=== PATIENT | female | born 1975 ===

== ENCOUNTER 2017-03-14 20:00 | Inpatient (IN) | payer OTHER ==
--- NOTE | 2017-03-14 20:48 | PDGENHP ---
History and Physical - Chief Complaint leaking of fluid - History of Present Illness Patient is a 41 year old at 32 6/7 weeks gestation LESLIE 05/03/17 who presents for leaking of fluid since 1900. Clear fluid. Patient and just moved from [place], [place] and had first visit with [facility] this past week. Her history includes gestational diabetes and polyhydramnios. +FM no vaginal bleeding +contractions History Information - Allergies/Home Medication List Allergies/Adverse Reactions: No Known Allergies Allergy (Unverified 03/14/17 20:32) I have personally reviewed and updated: medical history Review of Systems Review of Systems: Physical Exam Physical Exam: Constitutional: no apparent distress Cardiovascular: regular rate and rhythym, no murmur, rub, or gallop Respiratory: no respiratory distress, no rales or rhonchi, clear to auscultation Gastrointestinal: soft, non-tender abdomen, other (Gravid) Genitourinary: other (SVE ft/50/high cephalic ) Skin: warm, normal color Neurologic: AAOx3, sensation intact bilaterally Psychiatric: interacting appropriately, not anxious Lab Data & Imaging Review FHT : 140 + accels mod variability Cat I [place]:irregular Assessment & Plan Assessment: IUP at 32 6/7 weeks SROM Amnisure + Cephalic by ultrasound labor contractions on Progesterone Polyhydramnios AMA Gestational Diabetic Diet controlled Transfer from [place], [place] Plan: Admit to labor and Delivery IVF Betamethasone Labs Antibiotics Ultrasound confirms cephalic
[2017-03-14] MEDS ORDERED: AZITHROMYCIN 250 MG TAB PO ONE (20:53)
[2017-03-14] MEDS ORDERED: TERBUTALINE SULFATE 1 MG/ML VIAL IV ONE (20:54)
[2017-03-14] MEDS ORDERED: BETAMETHASONE IM SYRINGE IM ONE (21:00)
[2017-03-14] MEDS ORDERED: AMPICILLIN SODIUM 2 GM in STERILE WATER INJ 25 ML IV SCH (21:15)
[2017-03-14] MEDS ORDERED: OXYTOCIN 20 UNIT in LR 1,000 ML IV PRN (21:26)
[2017-03-14] MEDS ORDERED: EPSOM SALT 454 GM TP PRN (21:26)
[2017-03-14] MEDS ORDERED: LR 1,000 ML IV PRN (21:26)
[2017-03-14] MEDS ORDERED: OLIVE OIL 118 ML BTL MISC PRN (21:26)
[2017-03-14] MEDS ORDERED: MISOPROSTOL 200 MCG TAB PR PRN (21:26)
[2017-03-14] MEDS ORDERED: IBUPROFEN 600 MG TAB PO PRN (21:26)
[2017-03-14] MEDS ORDERED: TERBUTALINE SULFATE 1 MG/ML VIAL IV PRN (21:26)
[2017-03-14] MEDS: LR 1,000 ML IV SCH (21:40)
[2017-03-14 22:06] LABS: PLATELET COUNT 278 10^3/uL (150-400)
[2017-03-14] MEDS ORDERED: Mag Sulf 500 ML IV SCH (22:30)
[2017-03-14] MEDS ORDERED: MAGNESIUM SULF 4 GM/WATER 100 ML BAG IV ONE (22:30)
[2017-03-14] MEDS ORDERED: MAGNESIUM SULFATE 20 GM in D5W 500 ML IV SCH (22:45)
[2017-03-14] MEDS: AMPICILLIN SODIUM 2 GM in STERILE WATER INJ 25 ML IV SCH (22:52)
[2017-03-14 23:04] LABS: HIV TYPE 1 AND 2 NEGATIVE (NEGATIVE)
[2017-03-15] MEDS ORDERED: AMPICILLIN SODIUM 2 GM in NS 100 ML IV SCH
[2017-03-15] MEDS: AMPICILLIN SODIUM 2 GM in STERILE WATER INJ 25 ML IV SCH ×4 (05:07→23:01)
[2017-03-15] MEDS ORDERED: TERBUTALINE SULFATE 1 MG/ML VIAL SC ONE (07:18)
--- NOTE | 2017-03-15 07:49 | OBPROG ---
Labor Progress Note Assessment/Plan: Assessment: IUP at 34 weeks SROM Diabetic AMA Plan: Magnesium sulfate for betamethasone window Betamethasone Antibiotics Cephalic by ultrasound 03/15/17 07:48 Subjective/Intrapartum Course: 03/15/17 07:53 Doing well no contractions. Tolerating Magnesium well. No nausea no emesis +FM Objective: 03/14/17 21:40 Patient ABO/Rh A NEGATIVE 03/14/17 21:40 - SVE Membranes: SROM Amniotic Fluid Color: Clear - FHR Assessment [place] FHR (bpm): 145 FHR Pattern Variability: Moderate FHR Category: 1 - Physical Exam Neck: non-tender, full range of motion Respiratory: chest non-tender, lungs clear Cardiac/Chest: normal peripheral pulses, regular rate, rhythm Abdomen: normal bowel sounds, hypoactive bowel sounds, non-tender Extremities: normal range of motion, non-tender Skin: normal color, warm/dry Neuro/Psych: no motor/sensory deficits, alert, normal mood/affect, oriented x 3 Oxytocin Orders Assessment - Pre-Induction/Augmentation Assessment Gestational Age: 32 week(s) and 6 day(s) ICD10 Worksheet Patient Problems: Problems Problem Status Onset AMA (advanced maternal age) multigravida 35+ Acute Diabetes in Acute labor in third trimester Acute premature rupture of membranes (PPROM) with onset of labor after 24 hours of rupture in first trimester, antepartum Acute - ICD10 Problem Qualifiers (1) labor in third trimester (2) Diabetes in (3) AMA (advanced maternal age) multigravida 35+ (4) premature rupture of membranes (PPROM) with onset of labor after 24 hours of rupture in first trimester, antepartum
[2017-03-15] MEDS ORDERED: D50W 25 GM/50 ML SYR IVP PRN (07:57)
[2017-03-15] MEDS: INSULIN REGULAR HUMAN 100 UNIT/ML UNIT SC SCH ×3 (14:57→22:16)
[2017-03-15] MEDS: NS IV SCH (19:54)
[2017-03-15] MEDS: MAGNESIUM SULFATE IV SCH (19:54)
[2017-03-15] MEDS ORDERED: BETAMETHASONE IM SYRINGE IM ONE (21:00)
[2017-03-15] MEDS: LR 1,000 ML IV SCH (23:02)
[2017-03-16] MEDS: AMPICILLIN SODIUM 2 GM in STERILE WATER INJ 25 ML IV SCH ×3 (04:51→16:51)
[2017-03-16] MEDS: MAGNESIUM SULFATE IV SCH (06:06)
[2017-03-16] MEDS: NS IV SCH (06:06)
--- NOTE | 2017-03-16 06:39 | OBPROG ---
Labor Progress Note Assessment/Plan: Assessment: IUP at 34 weeks SROM Diabetic AMA Plan: Magnesium sulfate for betamethasone window Betamethasone Antibiotics Cephalic by ultrasound 03/15/17 07:48 03/16/17 06:45 Discontinue Magnesium sulfate Okay for shower and ambulating NST TID Subjective/Intrapartum Course: 03/15/17 07:53 Doing well no contractions. Tolerating Magnesium well. No nausea no emesis +FM Objective: 03/14/17 21:40 Patient ABO/Rh A NEGATIVE 03/14/17 21:40 - SVE Membranes: SROM Amniotic Fluid Color: Clear - FHR Assessment [place] FHR (bpm): 140 FHR Pattern Variability: Absent FHR Category: 1 - Physical Exam Neck: full range of motion, supple Respiratory: chest non-tender, lungs clear, normal breath sounds Cardiac/Chest: normal peripheral pulses, regular rate, rhythm Abdomen: normal bowel sounds, non-tender Extremities: normal range of motion, non-tender Neuro/Psych: no motor/sensory deficits, alert, normal mood/affect, oriented x 3 Oxytocin Orders Assessment - Pre-Induction/Augmentation Assessment Gestational Age: 32 week(s) and 6 day(s) ICD10 Worksheet Patient Problems: Problems Problem Status Onset AMA (advanced maternal age) multigravida 35+ Acute Diabetes in Acute labor in third trimester Acute premature rupture of membranes (PPROM) with onset of labor after 24 hours of rupture in first trimester, antepartum Acute - ICD10 Problem Qualifiers (1) labor in third trimester (2) Diabetes in (3) AMA (advanced maternal age) multigravida 35+ (4) premature rupture of membranes (PPROM) with onset of labor after 24 hours of rupture in first trimester, antepartum
[2017-03-16] MEDS: INSULIN REGULAR HUMAN 100 UNIT/ML UNIT SC SCH ×4 (07:49→22:42)
[2017-03-16] MEDS: DOCUSATE SODIUM 100 MG CAP PO SCH (21:45)
--- NOTE | 2017-03-17 07:18 | OBPROG ---
Labor Progress Note Assessment/Plan: Assessment:cat 1 contractions q 10 minutes continued leaking of clear fluid nicu tour today by wheelchair denies difficulties continuous monitoring antibiotics po tid regular diet afebrile dr. paco lopez in to see patient today to discus POC Plan:expectant management 03/17/17 07:15 Subjective/Intrapartum Course: 03/15/17 07:53 Doing well no contractions. Tolerating Magnesium well. No nausea no emesis +FM 03/17/17 07:14 Doing well denies difficulties. Decreased movement with magnesium, desires to keep monitoring continuous until reassuring movement returns . Objective: 03/14/17 21:40 Patient ABO/Rh A NEGATIVE 03/14/17 21:40 Group B Strep DNA POSITIVE (NEGATIVE) H 03/15/17 02:36 - SVE Membranes: SROM Amniotic Fluid Color: Clear - Contraction Pattern Assessment Current Contraction Pattern: Regular - FHR Assessment [place] FHR (bpm): 145 FHR Pattern Variability: Moderate FHR Category: 1 - Physical Exam General Appearance: WD/WN, alert, no apparent distress Respiratory: chest non-tender, lungs clear, normal breath sounds Cardiac/Chest: regular rate, rhythm Extremities: normal range of motion, Jolene's sign (negative bilaterally) DTR- Lower Extremities: Knee (R): 1+, Knee (L): 1+ (no clonus) Skin: normal color, warm/dry Neuro/Psych: no motor/sensory deficits, alert, normal mood/affect, oriented x 3 Oxytocin Orders Assessment - Pre-Induction/Augmentation Assessment Gestational Age: 32 week(s) and 6 day(s) ICD10 Worksheet Patient Problems: Problems Problem Status Onset AMA (advanced maternal age) multigravida 35+ Acute Diabetes in Acute labor in third trimester Acute premature rupture of membranes (PPROM) with onset of labor after 24 hours of rupture in first trimester, antepartum Acute
[2017-03-17] MEDS: DOCUSATE SODIUM 100 MG CAP PO SCH ×2 (09:57→20:37)
[2017-03-17] MEDS: PRENATAL VIT 1 EACH TAB PO SCH (09:59)
--- NOTE | 2017-03-18 08:08 | OBPROG ---
Labor Progress Note Assessment/Plan: Assessment: IUP at 33 3/7 weeks SROM Diabetic AMA Plan: Betamethasone completed Antibiotics Cephalic by ultrasound IOL at 34 weeks gestation 03/15/17 07:48 03/16/17 06:45 Discontinue Magnesium sulfate Okay for shower and ambulating NST TID 03/18/17 08:04 Subjective/Intrapartum Course: 03/15/17 07:53 Doing well no contractions. Tolerating Magnesium well. No nausea no emesis +FM 03/17/17 07:14 Doing well denies difficulties. Decreased movement with magnesium, desires to keep monitoring continuous until reassuring movement returns . Objective: 03/14/17 21:40 Patient ABO/Rh A NEGATIVE 03/14/17 21:40 Group B Strep DNA POSITIVE (NEGATIVE) H 03/15/17 02:36 - SVE Membranes: SROM Amniotic Fluid Color: Clear - Contraction Pattern Assessment Current Contraction Pattern: Regular - FHR Assessment [place] FHR (bpm): 145 FHR Pattern Variability: Moderate FHR Category: 1 - AP Antepartum Course: 03/18/17 08:06 Doing well no complaints. Tolerating diet and ambulating. Patient states will be working on 03/24 in [place]. However will most likely delivery this weekend after 34 weeks gestation. Oxytocin Orders Assessment - Pre-Induction/Augmentation Assessment Gestational Age: 32 week(s) and 6 day(s) ICD10 Worksheet Patient Problems: Problems Problem Status Onset AMA (advanced maternal age) multigravida 35+ Acute Diabetes in Acute labor in third trimester Acute premature rupture of membranes (PPROM) with onset of labor after 24 hours of rupture in first trimester, antepartum Acute - ICD10 Problem Qualifiers (1) labor in third trimester (2) Diabetes in (3) AMA (advanced maternal age) multigravida 35+ (4) premature rupture of membranes (PPROM) with onset of labor after 24 hours of rupture in first trimester, antepartum
[2017-03-18] MEDS ORDERED: RANITIDINE HCL 150 MG/10 ML UDCUP PO SCH (09:00)
[2017-03-18] MEDS ORDERED: FAMOTIDINE 20 MG TAB PO SCH (09:00)
[2017-03-18] MEDS ORDERED: LIDOCAINE 1% 300 MG/30 ML SDV ONE (10:13)
[2017-03-18] MEDS ORDERED: TERBUTALINE SULFATE 1 MG/ML VIAL ONE (10:14)
[2017-03-18] MEDS ORDERED: OLIVE OIL 118 ML BTL ONE (10:14)
[2017-03-18] MEDS ORDERED: AMMONIA AROMATIC 1 EACH AMP IH ONE (10:14)
[2017-03-18] MEDS ORDERED: OXYTOCIN 10 UNIT/ML VIAL ONE (10:14)
[2017-03-18] MEDS ORDERED: MISOPROSTOL 200 MCG TAB ONE (10:15)
[2017-03-18] MEDS: DOCUSATE SODIUM 100 MG CAP PO SCH ×2 (14:18→21:36)
[2017-03-18] MEDS: FAMOTIDINE 20 MG TAB PO SCH ×2 (15:51→21:32)
--- NOTE | 2017-03-19 07:39 | OBPROG ---
Labor Progress Note Assessment/Plan: Assessment: IUP at 33 4/7 weeks SROM Diabetic AMA Stable Plan: Betamethasone completed Antibiotics Cephalic by ultrasound IOL at 34 weeks gestation 03/15/17 07:48 03/16/17 06:45 Discontinue Magnesium sulfate Okay for shower and ambulating NST TID 03/18/17 08:04 03/19/17 07:32 Continue current management IOL at 34 weeks Inductions on Wednesday 03/22 Subjective/Intrapartum Course: 03/15/17 07:53 Doing well no contractions. Tolerating Magnesium well. No nausea no emesis +FM 03/17/17 07:14 Doing well denies difficulties. Decreased movement with magnesium, desires to keep monitoring continuous until reassuring movement returns . 03/19/17 07:39 Doing well. Had some contractions over night. Continues to have leaking of clear fluid. +FM no bleeding occ contractions Objective: 03/14/17 21:40 Patient ABO/Rh A NEGATIVE 03/14/17 21:40 Group B Strep DNA POSITIVE (NEGATIVE) H 03/15/17 02:36 - SVE Membranes: SROM Amniotic Fluid Color: Clear - Contraction Pattern Assessment Current Contraction Pattern: Regular - AP Antepartum Course: 03/18/17 08:06 Doing well no complaints. Tolerating diet and ambulating. Patient states will be working on 03/24 in [place]. However will most likely delivery this weekend after 34 weeks gestation. - Physical Exam Neck: non-tender, full range of motion Respiratory: chest non-tender, lungs clear, normal breath sounds Cardiac/Chest: normal peripheral pulses, regular rate, rhythm Abdomen: normal bowel sounds, non-tender, soft Extremities: normal range of motion, non-tender Skin: normal color, warm/dry Neuro/Psych: no motor/sensory deficits, alert, normal mood/affect, oriented x 3 Oxytocin Orders Assessment - Pre-Induction/Augmentation Assessment Gestational Age: 32 week(s) and 6 day(s) ICD10 Worksheet Patient Problems: Problems Problem Status Onset AMA (advanced maternal age) multigravida 35+ Acute Diabetes in Acute labor in third trimester Acute premature rupture of membranes (PPROM) with onset of labor after 24 hours of rupture in first trimester, antepartum Acute - ICD10 Problem Qualifiers (1) labor in third trimester (2) Diabetes in (3) AMA (advanced maternal age) multigravida 35+ (4) premature rupture of membranes (PPROM) with onset of labor after 24 hours of rupture in first trimester, antepartum
[2017-03-19] MEDS: FAMOTIDINE 20 MG TAB PO SCH ×2 (10:36→20:45)
[2017-03-19] MEDS: DOCUSATE SODIUM 100 MG CAP PO SCH ×2 (10:36→20:45)
[2017-03-19] MEDS: PRENATAL VIT 1 EACH TAB PO SCH ×2 (10:37→12:58)
--- NOTE | 2017-03-20 08:18 | OBPROG ---
Labor Progress Note Assessment/Plan: Assessment: IUP at 33 5/7 weeks SROM Diabetic AMA Stable Plan: Betamethasone completed Antibiotics Cephalic by ultrasound IOL at 34 weeks gestation 03/15/17 07:48 03/16/17 06:45 Discontinue Magnesium sulfate Okay for shower and ambulating NST TID 03/18/17 08:04 03/19/17 07:32 Continue current management IOL at 34 weeks Inductions on Wednesday 03/2203/20/17 08:13 Continue current management Plan IOL at 34 weeks 03/22/17 Subjective/Intrapartum Course: 03/15/17 07:53 Doing well no contractions. Tolerating Magnesium well. No nausea no emesis +FM 03/17/17 07:14 Doing well denies difficulties. Decreased movement with magnesium, desires to keep monitoring continuous until reassuring movement returns . 03/19/17 07:39 Doing well. Had some contractions over night. Continues to have leaking of clear fluid. +FM no bleeding occ contractions 03/20/17 08:18 Patient doing well. Tolerating diet. +FM one contraction over night. NO uterine tenderness. ambulating well in room. Objective: 03/14/17 21:40 Patient ABO/Rh A NEGATIVE 03/14/17 21:40 Group B Strep DNA POSITIVE (NEGATIVE) H 03/15/17 02:36 - SVE Membranes: SROM Amniotic Fluid Color: Clear - Contraction Pattern Assessment Current Contraction Pattern: Regular - FHR Assessment [place] FHR (bpm): 140 FHR Pattern Variability: Moderate FHR Category: 1 - AP Antepartum Course: 03/18/17 08:06 Doing well no complaints. Tolerating diet and ambulating. Patient states will be working on 03/24 in [place]. However will most likely delivery this weekend after 34 weeks gestation. Oxytocin Orders Assessment - Pre-Induction/Augmentation Assessment Gestational Age: 32 week(s) and 6 day(s) ICD10 Worksheet Patient Problems: Problems Problem Status Onset AMA (advanced maternal age) multigravida 35+ Acute Diabetes in Acute labor in third trimester Acute premature rupture of membranes (PPROM) with onset of labor after 24 hours of rupture in first trimester, antepartum Acute - ICD10 Problem Qualifiers (1) labor in third trimester (2) Diabetes in (3) AMA (advanced maternal age) multigravida 35+ (4) premature rupture of membranes (PPROM) with onset of labor after 24 hours of rupture in first trimester, antepartum
[2017-03-20] MEDS: [UNRECOGNIZED DRUG - OTHER] PO SCH (09:05)
[2017-03-20] MEDS: FAMOTIDINE 20 MG TAB PO SCH ×2 (09:05→22:07)
[2017-03-20] MEDS: VITAMIN D3 PO SCH (09:06)
[2017-03-20] MEDS: DOCUSATE SODIUM 100 MG CAP PO SCH ×2 (09:06→22:08)
[2017-03-21] MEDS: [UNRECOGNIZED DRUG - OTHER] PO SCH (09:00)
[2017-03-21] MEDS: VITAMIN D3 PO SCH (09:00)
[2017-03-21] MEDS: DOCUSATE SODIUM 100 MG CAP PO SCH ×2 (10:47→20:26)
[2017-03-21] MEDS: FAMOTIDINE 20 MG TAB PO SCH ×2 (10:48→20:26)
--- NOTE | 2017-03-21 10:50 | OBPROG ---
Labor Progress Note Assessment/Plan: Assessment: 41 y/o @ 33 6/7 weeks with PPROM s/p BMZ, MgSo4 and latency antibiotics. Plan: IOL tomorrow @ 34 weeks. We will check her cervix in the am and assess the best method for IOL, cytotec vs pitocin. Pt is open to pain management prn. 03/21/17 10:48 Subjective/Intrapartum Course: 03/15/17 07:53 Doing well no contractions. Tolerating Magnesium well. No nausea no emesis +FM 03/17/17 07:14 Doing well denies difficulties. Decreased movement with magnesium, desires to keep monitoring continuous until reassuring movement returns . 03/19/17 07:39 Doing well. Had some contractions over night. Continues to have leaking of clear fluid. +FM no bleeding occ contractions 03/20/17 08:18 Patient doing well. Tolerating diet. +FM one contraction over night. NO uterine tenderness. ambulating well in room. 03/21/17 10:46 Pt is doing well this am. She feels good FM, no pain or contractions, still leaking clear fluid, nml BM. She is ready for IOL tomorrow. Objective: 03/14/17 21:40 Patient ABO/Rh A NEGATIVE 03/14/17 21:40 Group B Strep DNA POSITIVE (NEGATIVE) H 03/15/17 02:36 - SVE Membranes: SROM Amniotic Fluid Color: Clear - Contraction Pattern Assessment Current Contraction Pattern: Regular, Irregular (none) - FHR Assessment [place] FHR (bpm): 140 FHR Pattern Variability: Moderate FHR Category: 1 - AP Antepartum Course: 03/18/17 08:06 Doing well no complaints. Tolerating diet and ambulating. Patient states will be working on 03/24 in [place]. However will most likely delivery this weekend after 34 weeks gestation. - Physical Exam General Appearance: WD/WN, alert, no apparent distress Neck: non-tender, full range of motion, supple Respiratory: chest non-tender, lungs clear, normal breath sounds Cardiac/Chest: regular rate, rhythm Abdomen: normal bowel sounds, other (gravid, NT) Extremities: swelling (no), Jolene's sign (neg) Oxytocin Orders Assessment - Pre-Induction/Augmentation Assessment Gestational Age: 32 week(s) and 6 day(s) ICD10 Worksheet Patient Problems: Problems Problem Status Onset AMA (advanced maternal age) multigravida 35+ Acute Diabetes in Acute labor in third trimester Acute premature rupture of membranes (PPROM) with onset of labor after 24 hours of rupture in first trimester, antepartum Acute
--- NOTE | 2017-03-22 07:07 | OBPROG ---
Labor Progress Note Assessment/Plan: Assessment:cat 2 irregular contractions continued leaking of clear fluid + gbs denies difficulties continuous monitoring regular diet afebrile Consulted dr. miguel mccord on poc exam ft-1/100/0 cephalic Plan:gbs + anibiotics to begin, cytotec for ripening, discussed poc with patient in agreement with poc 03/17/17 07:15 03/22/17 07:05 Subjective/Intrapartum Course: 03/15/17 07:53 Doing well no contractions. Tolerating Magnesium well. No nausea no emesis +FM 03/17/17 07:14 Doing well denies difficulties. Decreased movement with magnesium, desires to keep monitoring continuous until reassuring movement returns . 03/19/17 07:39 Doing well. Had some contractions over night. Continues to have leaking of clear fluid. +FM no bleeding occ contractions 03/20/17 08:18 Patient doing well. Tolerating diet. +FM one contraction over night. NO uterine tenderness. ambulating well in room. 03/21/17 10:46 Pt is doing well this am. She feels good FM, no pain or contractions, still leaking clear fluid, nml BM. She is ready for IOL tomorrow. 03/22/17 07:04 Doing well this am. Continued leaking of clear fluid. afebrile. Feeling positive movement. PAtient states I have been doing well, Objective: 03/14/17 21:40 Patient ABO/Rh A NEGATIVE 03/14/17 21:40 Group B Strep DNA POSITIVE (NEGATIVE) H 03/15/17 02:36 - SVE Dilation (cm): 1 Effacement (%): 100 Station: 0 Membranes: SROM Amniotic Fluid Color: Clear - Contraction Pattern Assessment Current Contraction Pattern: Irregular (none) - FHR Assessment [place] FHR (bpm): 165 FHR Pattern Variability: Moderate FHR Category: 2 - AP Antepartum Course: 03/18/17 08:06 Doing well no complaints. Tolerating diet and ambulating. Patient states will be working on 03/24 in [place]. However will most likely delivery this weekend after 34 weeks gestation. - Physical Exam General Appearance: WD/WN, alert, no apparent distress Respiratory: chest non-tender, lungs clear, normal breath sounds Cardiac/Chest: regular rate, rhythm Abdomen: normal bowel sounds Extremities: normal range of motion, Jolene's sign (negative bilaterally) DTR- Lower Extremities: Knee (R): 1+, Knee (L): 1+ (no clonus) Skin: normal color, warm/dry Neuro/Psych: no motor/sensory deficits, alert, normal mood/affect, oriented x 3 Oxytocin Orders Assessment - Pre-Induction/Augmentation Assessment Gestational Age: 32 week(s) and 6 day(s) ICD10 Worksheet Patient Problems: Problems Problem Status Onset AMA (advanced maternal age) multigravida 35+ Acute Diabetes in Acute labor in third trimester Acute premature rupture of membranes (PPROM) with onset of labor after 24 hours of rupture in first trimester, antepartum Acute
[2017-03-22] MEDS ORDERED: LR 1,000 ML IV PRN (07:08)
[2017-03-22] MEDS ORDERED: MISOPROSTOL 200 MCG TAB PO ONE (07:08)
[2017-03-22] MEDS ORDERED: MISOPROSTOL 200 MCG TAB PR PRN (07:08)
[2017-03-22] MEDS ORDERED: MISOPROSTOL 100 MCG TAB PO ONE ×2 (07:10→13:00)
[2017-03-22] MEDS: AMPICILLIN SODIUM 1 GM in STERILE WATER INJ 15 ML IV SCH ×5 (08:01→22:09)
[2017-03-22] MEDS: VITAMIN D3 PO SCH (08:35)
[2017-03-22] MEDS: [UNRECOGNIZED DRUG - OTHER] PO SCH (08:35)
[2017-03-22] MEDS: DOCUSATE SODIUM 100 MG CAP PO SCH ×2 (12:15→22:02)
[2017-03-22] MEDS: FAMOTIDINE 20 MG TAB PO SCH (12:15)
--- NOTE | 2017-03-22 13:33 | OBPROG ---
Labor Progress Note Assessment/Plan: Assessment: Has only felt one contraction with 1st cytotec. Afebrile, feeling well, FHR Category I. Plan: 03/22/17 13:30 2nd cytotec now after she has some lunch. Will reassess after another 4 hour for further ripening vs Pitocin. status reassuring, currently no s/sx concerning for infection. On abx for GBS positive. Subjective/Intrapartum Course: 03/15/17 07:53 Doing well no contractions. Tolerating Magnesium well. No nausea no emesis +FM 03/17/17 07:14 Doing well denies difficulties. Decreased movement with magnesium, desires to keep monitoring continuous until reassuring movement returns . 03/19/17 07:39 Doing well. Had some contractions over night. Continues to have leaking of clear fluid. +FM no bleeding occ contractions 03/20/17 08:18 Patient doing well. Tolerating diet. +FM one contraction over night. NO uterine tenderness. ambulating well in room. 03/21/17 10:46 Pt is doing well this am. She feels good FM, no pain or contractions, still leaking clear fluid, nml BM. She is ready for IOL tomorrow. 03/22/17 07:04 Doing well this am. Continued leaking of clear fluid. afebrile. Feeling positive movement. PAtient states I have been doing well, 03/22/17 13:32 Feeling good - has only felt one contraction with 1st cytotec. No fevers/ chills. Some mild low pelvic cramping. Objective: 03/14/17 21:40 Patient ABO/Rh A NEGATIVE 03/22/17 07:30 Group B Strep DNA POSITIVE (NEGATIVE) H 03/15/17 02:36 - SVE Membranes: SROM Amniotic Fluid Color: Clear - Contraction Pattern Assessment Current Contraction Pattern: Irregular (none) - FHR Assessment [place] FHR (bpm): 155 FHR Pattern Variability: Moderate FHR Category: 1 (+frequent accels, -decels) - AP Antepartum Course: 03/18/17 08:06 Doing well no complaints. Tolerating diet and ambulating. Patient states will be working on 03/24 in [place]. However will most likely delivery this weekend after 34 weeks gestation. Oxytocin Orders Assessment - Pre-Induction/Augmentation Assessment Gestational Age: 32 week(s) and 6 day(s) ICD10 Worksheet Patient Problems: Problems Problem Status Onset AMA (advanced maternal age) multigravida 35+ Acute Diabetes in Acute labor in third trimester Acute premature rupture of membranes (PPROM) with onset of labor after 24 hours of rupture in first trimester, antepartum Acute
[2017-03-22] MEDS ORDERED: OXYTOCIN 30 UNIT in NS 500 ML IV SCH (17:30)
--- NOTE | 2017-03-22 17:35 | OBPROG ---
Labor Progress Note Assessment/Plan: Assessment:cat 2 irregular contractions continued leaking of clear fluid + gbs several doses of ampicilling for gbs positive denies difficulties continuous monitoring regular diet afebrile Consulted dr. miguel mccord on poc exam 100/0 cephalic Plan:pitocin per protocol discussed pitocin verbalized understanding 03/17/17 07:15 03/22/17 07:05 03/22/17 17:34 Subjective/Intrapartum Course: 03/15/17 07:53 Doing well no contractions. Tolerating Magnesium well. No nausea no emesis +FM 03/17/17 07:14 Doing well denies difficulties. Decreased movement with magnesium, desires to keep monitoring continuous until reassuring movement returns . 03/19/17 07:39 Doing well. Had some contractions over night. Continues to have leaking of clear fluid. +FM no bleeding occ contractions 03/20/17 08:18 Patient doing well. Tolerating diet. +FM one contraction over night. NO uterine tenderness. ambulating well in room. 03/21/17 10:46 Pt is doing well this am. She feels good FM, no pain or contractions, still leaking clear fluid, nml BM. She is ready for IOL tomorrow. 03/22/17 07:04 Doing well this am. Continued leaking of clear fluid. afebrile. Feeling positive movement. PAtient states I have been doing well, 03/22/17 13:32 Feeling good - has only felt one contraction with 1st cytotec. No fevers/ chills. Some mild low pelvic cramping. Objective: 03/14/17 21:40 Patient ABO/Rh A NEGATIVE 03/22/17 07:30 Group B Strep DNA POSITIVE (NEGATIVE) H 03/15/17 02:36 - SVE Dilation (cm): 3 Effacement (%): 75 Station: -1 Membranes: SROM Amniotic Fluid Color: Clear - Contraction Pattern Assessment Current Contraction Pattern: Irregular (none) - FHR Assessment [place] FHR (bpm): 150 FHR Pattern Variability: Moderate FHR Category: 2 - AP Antepartum Course: 03/18/17 08:06 Doing well no complaints. Tolerating diet and ambulating. Patient states will be working on 03/24 in [place]. However will most likely delivery this weekend after 34 weeks gestation. Oxytocin Orders Assessment - Pre-Induction/Augmentation Assessment Gestational Age: 32 week(s) and 6 day(s) ICD10 Worksheet Patient Problems: Problems Problem Status Onset AMA (advanced maternal age) multigravida 35+ Acute Diabetes in Acute labor in third trimester Acute premature rupture of membranes (PPROM) with onset of labor after 24 hours of rupture in first trimester, antepartum Acute
[2017-03-22] MEDS ORDERED: PHENYLEPHRINE HCL 100 MCG/ML SYR ONE (20:31)
[2017-03-22] MEDS ORDERED: fentaNYL 100 MCG/2 ML INJ ONE (20:31)
[2017-03-22] MEDS ORDERED: fentaNYL 2MCG/ML/BUP 0.1% RTU 100 ML BAG EP ONE (20:55)
[2017-03-22] MEDS ORDERED: ONDANSETRON 4 MG/2 ML VIAL IVP PRN (21:21)
[2017-03-22] MEDS ORDERED: METOCLOPRAMIDE 10 MG/2 ML VIAL IVP PRN (21:21)
[2017-03-22] MEDS ORDERED: NALOXONE HCL 0.4 MG/ML INJ IVP PRN (21:21)
[2017-03-22] MEDS ORDERED: fentaNYL 2MCG/ML/BUP 0.1% RTU 100 ML EP SCH (21:30)
[2017-03-22] MEDS ORDERED: LR 500 ML IV SCH (21:30)
--- NOTE | 2017-03-22 21:35 | OBPROG ---
Labor Progress Note Assessment/Plan: Developed recurrent variables within the last 30 minutes. Did become more uncomfortable and request/receive epidural at this same time. SCE 7/100/0, Double internals placed. Will start amnioinfusion to see if we can address variables - suspect cord. Will recheck in 2 hrs or if pt feels more pressure. Continue abx for GBS. Subjective/Intrapartum Course: 03/15/17 07:53 Doing well no contractions. Tolerating Magnesium well. No nausea no emesis +FM 03/17/17 07:14 Doing well denies difficulties. Decreased movement with magnesium, desires to keep monitoring continuous until reassuring movement returns . 03/19/17 07:39 Doing well. Had some contractions over night. Continues to have leaking of clear fluid. +FM no bleeding occ contractions 03/20/17 08:18 Patient doing well. Tolerating diet. +FM one contraction over night. NO uterine tenderness. ambulating well in room. 03/21/17 10:46 Pt is doing well this am. She feels good FM, no pain or contractions, still leaking clear fluid, nml BM. She is ready for IOL tomorrow. 03/22/17 07:04 Doing well this am. Continued leaking of clear fluid. afebrile. Feeling positive movement. PAtient states I have been doing well, 03/22/17 13:32 Feeling good - has only felt one contraction with 1st cytotec. No fevers/ chills. Some mild low pelvic cramping. Objective: 03/14/17 21:40 Patient ABO/Rh A NEGATIVE 03/22/17 07:30 Group B Strep DNA POSITIVE (NEGATIVE) H 03/15/17 02:36 - SVE Dilation (cm): 7 Effacement (%): 100 Station: 0 Membranes: SROM Amniotic Fluid Color: Clear - Contraction Pattern Assessment Current Contraction Pattern: Regular, Irregular (none) - FHR Assessment [place] FHR (bpm): 160 FHR Pattern Variability: Moderate FHR Category: 2 (Recurrent variables) - Procedures Non-surgical Procedures: FSE, IUPC - AP Antepartum Course: 03/18/17 08:06 Doing well no complaints. Tolerating diet and ambulating. Patient states will be working on 03/24 in [place]. However will most likely delivery this weekend after 34 weeks gestation. Oxytocin Orders Assessment - Pre-Induction/Augmentation Assessment Gestational Age: 32 week(s) and 6 day(s) ICD10 Worksheet Patient Problems: Problems Problem Status Onset AMA (advanced maternal age) multigravida 35+ Acute Diabetes in Acute labor in third trimester Acute premature rupture of membranes (PPROM) with onset of labor after 24 hours of rupture in first trimester, antepartum Acute
[2017-03-22] MEDS: PHENYLEPHRINE HCL 100 MCG/ML SYR IVP PRN ×2 (21:53→22:13)
[2017-03-22] MEDS ORDERED: ACETAMINOPHEN 500 MG TAB PO ONE (22:35)
[2017-03-22] MEDS ORDERED: ACETAMINOPHEN 500 MG TAB ONE (23:19)
[2017-03-23] MEDS ORDERED: fentaNYL 100 MCG/2 ML INJ IVP ONE (00:18)
[2017-03-23] MEDS ORDERED: HYDROCODONE/APAP 5/325 TAB PO PRN (00:57)
[2017-03-23] MEDS ORDERED: POLYETHYLENE GLYCOL 3350 17 GM PKT PO PRN (00:57)
[2017-03-23] MEDS ORDERED: BISACODYL 10 MG SUPP PR PRN (00:57)
[2017-03-23] MEDS ORDERED: SIMETHICONE 80 MG TAB CHEW PO PRN (00:57)
[2017-03-23] MEDS ORDERED: LACTULOSE 20 GM/30 ML UDCUP PO PRN (00:57)
[2017-03-23] MEDS ORDERED: MAGNESIUM HYDROXIDE 30 ML UDCUP PO PRN (00:57)
[2017-03-23] MEDS ORDERED: HYDROCORTISONE 0.5% CREAM TP PRN (00:57)
--- NOTE | 2017-03-23 01:07 | OBDEL ---
Info Type: Vaginal Presentation at Delivery: Vertex (Direct OP) L&D Analgesia/Anesthesia Type: Epidural GBS+: Yes (Ampicillin doses x many prior to delivery) Antibiotic Used for + GBS: Ampicillin Intrapartum Medications: Generic Name Dose Route Start Last Admin Trade Name Lyle PRN Reason Stop Dose Admin Docusate Sodium 100 mg 03/16/17 21:45 03/22/17 22:02 Colace PO 09/12/17 21:44 Not Given BID MARY Famotidine 20 mg 03/18/17 07:00 03/22/17 12:15 Pepcid PO 09/14/17 06:59 20 mg BID MARY Administration Lactated Ringer's 1,000 mls @ 125 mls/hr 03/14/17 21:00 03/15/17 23:02 Lr IV 09/10/17 20:59 1,000 mls CONT MARY Administration Ampicillin Sodium 1 gm/ 15 mls @ 30 mls/hr 03/22/17 12:00 03/22/17 22:09 Sterile Water IV 04/21/17 11:59 15 mls Q4H MARY Administration Protocol Oxytocin 30 unit/ Sodium 503 mls @ 0 mls/hr 03/22/17 17:30 03/22/17 17:49 Chloride IV 09/18/17 17:29 503 mls CONT MARY Administration Protocol Per Protocol Miscellaneous Medication 1 ea 03/20/17 09:00 03/22/17 08:35 Non-Formulary PO 09/16/17 08:59 1 tab DAILY MARY Administration Miscellaneous Medication 1 ea 03/20/17 09:00 03/22/17 08:35 Non-Formulary PO 09/16/17 08:59 1 tab DAILY MARY Administration Phenylephrine HCl 100 mcg 03/22/17 21:21 03/22/17 22:13 Neosynephrine IVP 09/18/17 21:20 100 mcg .Q2M PRN Administration Hypotension Discontinued Medications Generic Name Dose Route Start Last Admin Trade Name Lyle PRN Reason Stop Dose Admin Amoxicillin 500 mg 03/16/17 20:54 03/21/17 06:22 Amoxicillin PO 03/21/17 06:01 500 mg Q8HRS MARY Administration Protocol Azithromycin 1,000 mg 03/14/17 20:53 03/14/17 22:06 Zithromax PO 03/14/17 20:54 1,000 mg ONCE ONE Administration Protocol Betamethasone Acet/Betameth SodPhos 12.5 mg 03/14/17 21:00 03/14/17 21:33 Celestone Im Syringe IM 03/14/17 21:01 12.5 mg ONCE ONE Administration Betamethasone Acet/Betameth SodPhos 12.5 mg 03/15/17 21:00 03/15/17 20:56 Celestone Im Syringe IM 03/15/17 21:01 12.5 mg ONCE ONE Administration Ampicillin Sodium 2 gm/ 25 mls @ 100 mls/hr 03/14/17 22:30 03/16/17 16:51 Sterile Water IV 03/16/17 16:44 25 mls Q6H MARY Administration Oxytocin 20 unit/ Lactated 1,002 mls @ 150 mls/hr 03/14/17 21:26 03/23/17 00: 39 Ringer's IV 1,002 mls PRN PRN Administration Post- bleeding Magnesium Sulfate 20 gm/ 540 mls @ 50 mls/hr 03/15/17 08:30 03/16/17 06:06 Sodium Chloride IV 09/10/17 22:44 540 mls AD MARY Administration Protocol Ampicillin Sodium 1 gm/ 15 mls @ 30 mls/hr 03/22/17 07:15 03/22/17 08:36 Sterile Water IV 03/22/17 08:14 15 mls Q30M MARY Administration Protocol Insulin Human Regular 0 unit 03/15/17 11:30 03/16/17 22:42 Humulin R SC 09/11/17 11:29 Not Given ACHS [facility] Protocol Magnesium Sulfate 4 gm 03/14/17 22:30 03/15/17 09:26 Magnesium Sulf 4 Gm (Premix) IV 03/14/17 22:31 Not Given ONCE ONE Misoprostol 50 mcg 03/22/17 07:10 03/22/17 07:58 Cytotec PO 03/22/17 07:11 50 mcg ONCE ONE Administration Misoprostol 50 mcg 03/22/17 13:00 03/22/17 12:58 Cytotec PO 03/22/17 13:01 50 mcg ONCE ONE Administration Prenat Multivit/Gallia/Iron/Folic Ac 1 each 03/17/17 08:00 03/19/17 12:58 PO 09/13/17 07:59 Not Given DAILY@0800 MARY Terbutaline Sulfate 0.25 mg 03/14/17 20:54 03/15/17 07:15 Brethine IV 03/14/17 20:55 Not Given ONCE ONE Terbutaline Sulfate 0.25 mg 03/15/17 07:18 03/15/17 14:58 Brethine SC 03/15/17 07:19 Not Given ONCE ONE - Hospital Course Intrapartum: 03/15/17 07:53 Doing well no contractions. Tolerating Magnesium well. No nausea no emesis +FM 03/17/17 07:14 Doing well denies difficulties. Decreased movement with magnesium, desires to keep monitoring continuous until reassuring movement returns . 03/19/17 07:39 Doing well. Had some contractions over night. Continues to have leaking of clear fluid. +FM no bleeding occ contractions 03/20/17 08:18 Patient doing well. Tolerating diet. +FM one contraction over night. NO uterine tenderness. ambulating well in room. 03/21/17 10:46 Pt is doing well this am. She feels good FM, no pain or contractions, still leaking clear fluid, nml BM. She is ready for IOL tomorrow. 03/22/17 07:04 Doing well this am. Continued leaking of clear fluid. afebrile. Feeling positive movement. PAtient states I have been doing well, 03/22/17 13:32 Feeling good - has only felt one contraction with 1st cytotec. No fevers/ chills. Some mild low pelvic cramping. Indications for Delivery: PPROM (PPROM at ~33wks, IOL at 34w0d ) Vaginal Delivery - Delivery Provider Delivery Physician/CNM: Kendrick Feliciano - Labor and Delivery Onset of Contractions Date: 03/14/17 Onset of Contractions Time: 20:00 Onset of Contractions Type: Induced Rupture of Membranes Type: Premature Amniotic Fluid Color: Clear Non-surgical Procedures: FSE, IUPC Laceration: 2nd Degree Repair: 3-0 (3-0 vicryl) Vaginal Sponge Count Correct: Yes Vaginal Needle Count Correct: Yes Vaginal Sweep Performed: Yes EBL: 600 Delivery Events: Nuchal Cord, Post Hemorrhage, Retained Placenta Delivery Comment: Labor induced with Cytotec x 2 during the day on 03/22/17. Was 3cm when we started Pitocin. Developed recurrent variable decels at 5cm and we placed double internal monitors and started amnioinfusion. In the next few hours complete and +2. Pushed for approximately 45 minutes. Variable decels during this time, but with good return to baseline with good variability and accels between. Discussed operative vaginal delivery potential a couple different points during pushing. Ultimately delivered vigorous baby boy, direct OP position. Single nuchal cord loose and reduced at the perineum. Baby up to mom' s chest. PNNP and team dried and stimulated. Greater than 60 secs of delayed cord clamping. Cord gasses sent. Waited 30 minutes for placenta with cord traction and fundal massage without delivery of placenta. At 30 minutes greater traction put on cord and I introduced my hand into the cavity for manual extraction. Densely adherent placenta at the fundus, needed to digitally create plan along good portion of the fundus. Ultimately placenta removed in two large pieces - ragged. US brought into the room and US showed maybe small blood/clot/material in right uterine cornua. 100mcg fentanyl given IV push. Reintroduced my hand as well as Keron's curette into cavity, maybe small bits of placenta and clot removed. Rescanned and saw thin stripe throughout. Following this, 2nd degree perineal lac repaired with 3-0 vicryl. Baby taken to NICU, mom doing well with . EBL 600cc. Cord Gases: Cord Gases Cord Blood PCO2 54.9 mmHg (37-60) 03/22/17 23:38 Cord Base Excess -7.4 mEq/L (-13.6--3.2) 03/22/17 23:38 Cord ABG pH 7.21 (7.10-7.37) 03/22/17 23:38 Cord VBG pH 7.36 (7.20-7.42) 03/22/17 23:38 - Medications Labor Augmentation/Induction Methods Used: Pitocin, Misoprostol Labor Augmentation/Induction Indication: Other (Specify) (PPROM 34w0d) Operative Report - Delivery Cord Gases: Cord Gases Cord Blood PCO2 54.9 mmHg (37-60) 03/22/17 23:38 Cord Base Excess -7.4 mEq/L (-13.6--3.2) 03/22/17 23:38 Cord ABG pH 7.21 (7.10-7.37) 03/22/17 23:38 Cord VBG pH 7.36 (7.20-7.42) 03/22/17 23:38 Data LESLIE: 05/03/17 Gestational Age: 34 week(s) and 1 day(s) ICD10 Worksheet Patient Problems: Problems Problem Status Onset AMA (advanced maternal age) multigravida 35+ Acute Diabetes in Acute labor in third trimester Acute premature rupture of membranes (PPROM) with onset of labor after 24 hours of rupture in first trimester, antepartum Acute
[2017-03-23] MEDS: AMPICILLIN SODIUM 1 GM in STERILE WATER INJ 15 ML IV SCH ×2 (02:19→04:49)
[2017-03-23] MEDS: FAMOTIDINE 20 MG TAB PO SCH ×3 (02:53→22:27)
[2017-03-23] MEDS ORDERED: OXYTOCIN 10 UNIT/ML VIAL ONE (04:24)
[2017-03-23] MEDS: ACETAMINOPHEN 325 MG TAB PO PRN ×3 (06:05→20:11)
[2017-03-23 06:32] VITALS: O2SAT 96
--- NOTE | 2017-03-23 11:45 | OBPP ---
Progress Note Assessment/Plan: Assessment: 41 y/o PPD #1 s/p IOL @ 34 weeks secondary to PPROM Plan: Begin iron BID secondary to anemia. Baby is stable in NICU on room air beginning feeds. Encourage pumping and routine PPC. 03/21/17 10:48 03/23/17 11:43 Subjective/ Course: 03/23/17 11:41 Pt is doing well this am. She has min perineal pain and cramping controlled by Ibuprofen. She is ambulating and voiding and has min lochia. She has tried to breast feed and pump with small amounts of colstrum. Objective: 03/23/17 06:15 Patient ABO/Rh A NEGATIVE 03/23/17 02:00 Group B Strep DNA POSITIVE (NEGATIVE) H 03/15/17 02:36 Temp Pulse Resp BP Pulse Ox 36.6 C 89 16 106/66 96 03/23/17 06:00 03/23/17 06:00 03/23/17 06:00 03/23/17 06:00 03/23/17 06:00 Uterine Position/Fundal Height: Umbilicus -2 Uterine Tone: Firm Physical Exam - Physical Exam General Appearance: WD/WN, alert, no apparent distress Neck: non-tender, full range of motion, supple Respiratory: chest non-tender, lungs clear, normal breath sounds Cardiac/Chest: regular rate, rhythm Abdomen: normal bowel sounds Extremities: swelling (no), Jolene's sign (neg)
[2017-03-23] MEDS: SENNOSIDES/DOCUSATE SODIUM TAB PO SCH ×2 (13:11→21:33)
[2017-03-23] MEDS: DOCUSATE SODIUM 100 MG CAP PO SCH ×2 (13:12→21:33)
[2017-03-23] MEDS: VITAMIN D3 PO SCH (13:16)
[2017-03-23] MEDS: [UNRECOGNIZED DRUG - OTHER] PO SCH (13:17)
[2017-03-23] MEDS: IRON POLYSAC/IRON HEME 28 MG TAB PO SCH (22:27)
--- NOTE | 2017-03-24 07:39 | OBPP ---
Progress Note Assessment/Plan: Assessment:pumping and denies pain ff@u scant rubra lochia voiding without difficulty denies depression happy with her care Plan:discharge to [facility], discussed depression, pain management, ss infection, bleeding pattern, pumping and ,contraception, rest, exercise, pelvic rest 4 and 6 week fu with the office 03/17/17 07:15 03/22/17 07:05 03/22/17 17:34 03/24/17 08:14 Subjective/ Course: 03/23/17 11:41 Pt is doing well this am. She has min perineal pain and cramping controlled by Ibuprofen. She is ambulating and voiding and has min lochia. She has tried to breast feed and pump with small amounts of colstrum. 03/24/17 08:13 Doing well denies difficulties. Discharge to [facility]. denies pain. Coping well. Objective: 03/23/17 06:15 Patient ABO/Rh A NEGATIVE 03/23/17 02:00 Group B Strep DNA POSITIVE (NEGATIVE) H 03/15/17 02:36 Temp Pulse Resp BP Pulse Ox 36.8 C 100 14 110/72 96 03/23/17 20:00 03/23/17 20:00 03/23/17 20:00 03/23/17 20:00 03/23/17 06:00 Uterine Position/Fundal Height: At Umbilicus Uterine Tone: Firm Physical Exam - Physical Exam General Appearance: WD/WN, alert, no apparent distress Abdomen: other (ff@u /scant rubra lochia) Extremities: Jolene's sign (negative bilaterally) DTR- Lower Extremities: Knee (R): 1+, Knee (L): 1+ (no clonus) Skin: normal color Neuro/Psych: no motor/sensory deficits, alert, normal mood/affect
--- NOTE | 2017-03-24 08:27 | OBGCSDC ---
General Delivery Information - General Info : 4 Para: 1 Abortions: 0 Type: Vaginal L&D Analgesia/Anesthesia Type: Epidural Admission Date: 03/14/17 Labs: Patient ABO/Rh A NEGATIVE 03/23/17 02:00 Hct 30.8 % (38.0-47.0) L 03/23/17 06:15 Group B Strep DNA POSITIVE (NEGATIVE) H 03/15/17 02:36 - Hospital Course Antepartum: 03/18/17 08:06 Doing well no complaints. Tolerating diet and ambulating. Patient states will be working on 03/24 in [place]. However will most likely delivery this weekend after 34 weeks gestation. Intrapartum: 03/15/17 07:53 Doing well no contractions. Tolerating Magnesium well. No nausea no emesis +FM 03/17/17 07:14 Doing well denies difficulties. Decreased movement with magnesium, desires to keep monitoring continuous until reassuring movement returns . 03/19/17 07:39 Doing well. Had some contractions over night. Continues to have leaking of clear fluid. +FM no bleeding occ contractions 03/20/17 08:18 Patient doing well. Tolerating diet. +FM one contraction over night. NO uterine tenderness. ambulating well in room. 03/21/17 10:46 Pt is doing well this am. She feels good FM, no pain or contractions, still leaking clear fluid, nml BM. She is ready for IOL tomorrow. 03/22/17 07:04 Doing well this am. Continued leaking of clear fluid. afebrile. Feeling positive movement. PAtient states I have been doing well, 03/22/17 13:32 Feeling good - has only felt one contraction with 1st cytotec. No fevers/ chills. Some mild low pelvic cramping. : 03/23/17 11:41 Pt is doing well this am. She has min perineal pain and cramping controlled by Ibuprofen. She is ambulating and voiding and has min lochia. She has tried to breast feed and pump with small amounts of colstrum. 03/24/17 08:13 Doing well denies difficulties. Discharge to [facility]. denies pain. Coping well. Vaginal - Delivery Provider Delivery Physician/CNM: Kendrick Feliciano - Diagnosis Labor: Induced Rupture of Membranes Type: Premature Amniotic Fluid Color: Clear Laceration: 2nd Degree Repair: 3-0 (3-0 vicryl) Delivery Events: Nuchal Cord, Post Hemorrhage, Retained Placenta - Procedures Non-surgical Procedures: FSE, IUPC - Delivery Non-surgical Procedures: FSE, IUPC EBL: 600 [place] Data LESLIE: 05/03/17 Gestational Age: 34 week(s) and 2 day(s) [place] Delivery Date: 03/22/17 Delivery Time: 23:38 Sex of : Male Score (1 Min): 8 Score (5 Min): 9 Discharge Information - Discharge Information Prescriptions: Iron Polysacch/Iron Heme Polyp [Bifera] 28 mg PO BID #90 tab Condition: Good
[2017-03-24] MEDS: DOCUSATE SODIUM 100 MG CAP PO SCH (09:49)
[2017-03-24] MEDS: IRON POLYSAC/IRON HEME 28 MG TAB PO SCH (09:49)
[2017-03-24] MEDS: ACETAMINOPHEN 325 MG TAB PO PRN (09:50)
[2017-03-24 10:16] VITALS: BP 119/80; PULSE 95; RESP 16; TEMP 97.4
[2017-03-24] MEDS: FAMOTIDINE 20 MG TAB PO SCH (10:17)
[2017-03-24] MEDS: SENNOSIDES/DOCUSATE SODIUM TAB PO SCH (10:18)
[2017-03-24] MEDS: [UNRECOGNIZED DRUG - OTHER] PO SCH (16:44)
[2017-03-24] MEDS: VITAMIN D3 PO SCH (16:45)
== END 2017-03-24 18:11 | disposition home or self-care (01) | DRG 767 ==
LOC: FLD 20:00 → OBSVTOIN 20:56 → FOB 03-23 03:30
PROVIDERS: ADMIT Obstetrics & Gynecology; ATTEND Obstetrics & Gynecology
PROC: 3E0E73Z Introduction of Anti-inflammatory into Products of Conception, Via Natural or Artificial Opening (ICD-10-PCS; 2017-03-14)
PROC: 10H073Z Insertion of Monitoring Electrode into Products of Conception, Via Natural or Artificial Opening (ICD-10-PCS; principal; 2017-03-22)
PROC: 4A1H7CZ Monitoring of Products of Conception, Cardiac Rate, Via Natural or Artificial Opening (ICD-10-PCS; principal; 2017-03-22)
PROC: 10D17Z9 Manual Extraction of Products of Conception, Retained, Via Natural or Artificial Opening (ICD-10-PCS; principal; 2017-03-22)
PROC: 3E033VJ Introduction of Other Hormone into Peripheral Vein, Percutaneous Approach (ICD-10-PCS; principal; 2017-03-22)
PROC: 0KQM0ZZ Repair Perineum Muscle, Open Approach (ICD-10-PCS; principal; 2017-03-22)
PROC: 10E0XZZ Delivery of Products of Conception, External Approach (ICD-10-PCS; principal; 2017-03-22)
DX: O42.113 Preterm premature rupture of membranes, onset of labor more than 24 hours following rupture, third trimester (principal); O72.0 Third-stage hemorrhage; O70.1 Second degree perineal laceration during delivery; O26.873 Cervical shortening, third trimester; O24.410 Gestational diabetes mellitus in pregnancy, diet controlled; O40.3XX0 Polyhydramnios, third trimester, not applicable or unspecified; O99.820 Streptococcus B carrier state complicating pregnancy; O36.8130 Decreased fetal movements, third trimester, not applicable or unspecified; O90.81 Anemia of the puerperium; O69.89X0 Labor and delivery complicated by other cord complications, not applicable or unspecified; O76 Abnormality in fetal heart rate and rhythm complicating labor and delivery; O99.283 Endocrine, nutritional and metabolic diseases complicating pregnancy, third trimester; E04.1 Nontoxic single thyroid nodule; Z3A.34 34 weeks gestation of pregnancy; Z37.0 Single live birth
CPT/HCPCS: J0290; J0702; J2370; J3010; J3105; J3475

== ENCOUNTER 2018-05-17 15:40 | Observation (INO) | payer SELFPAY ==
--- NOTE | 2018-05-17 16:27 | OBPROG ---
Labor Progress Note Assessment/Plan: Assessment: 42 yo at 28w4d presents today with known previa (or low-lying placenta) with small self-limited vaginal bleeding. OB US reassuring as below: CL difficult to get accurately per tech - but looks reassuring at (at least) 2.6cm. Normal fluid, no previa - low lying by todays exam. We've seen no bleeding during her entire evaluation here. Rh neg, will give RhoGam. DC home to f/u with her primary OB tomorrow. JM Subjective/Intrapartum Course: Cally came in today after noticing some bright red vaginal bleeding after a bowel movement around lunch time. She reports that she's had known placenta previa that was diagnosed at 20 wks and had f/u scan approx 4 wks later that looked like things were improving but not resolved per her report. The bleeding was into the toilet and a small half-dollar sized area on her underwear that she was wearing when she arrived here. We've seen no additional bleeding during her triage evaluation. She denies any new cramping, no contractions - normal baby movement. No recent intercourse, or excessive physical activity. She has not yet received RhoGam during this , but is known RH neg. Objective: Pt Name: CALLY COURTNEY V Report Number: [id number] : 1975 Unit Number: [id number] Ordering Phys: Kendrick Feliciano MD Pt Type: ADM Mary Date of Service: 05/17/18 Acct Num: [id number] [facility] 1+ Gestation ___ Ultrasound Obstetric limited Indication: Vaginal bleeding; possible placenta previa documented on outside study. The estimated gestational age 28 weeks, 4 days . Comparison: Detailed OB evaluation March 17, 2017 Findings: Number: One. Presentation: Breech. Placental Location: Low lying with no previa. Cervix: 2.6 cm. MVP: 7.2 cm. ELLIS 21.9 cm Heart Rate: 156 bpm. Impression: A placenta previa is not identified. Other findings are detailed above. Dr. Feliciano was present for a portion of the examination. Dictated By: Timothy Stokes MD *This report was compiled using a voice recognition dictation system and may contain typographical errors* 10 T: PSCRIBE 05/17/181810 Electronically Signed by: Timothy Stokes MD 05/17/181815 CC: Kendrick Feliciano MD; Patient,NotPresent~ - SVE Dilation (cm): 0 Effacement (%): Less than 50 - Contraction Pattern Assessment Current Contraction Pattern: Other (Specify) (Non, irritable) - FHR Assessment [place] FHR (bpm): 130 FHR Pattern Variability: Moderate FHR Category: 1 ICD10 Worksheet Patient Problems: Problems Problem Status Onset Low lying placenta with hemorrhage in third trimester, antepartum Acute - ICD10 Problem Qualifiers (1) Low lying placenta with hemorrhage in third trimester, antepartum
[2018-05-17 17:15] LABS: PLATELET COUNT 339 10^3/uL (150-400)
== END 2018-05-17 19:00 | disposition home or self-care (01) ==
LOC: FLD 15:40
PROVIDERS: ADMIT Obstetrics & Gynecology; ATTEND Obstetrics & Gynecology
DX: O43.893 Other placental disorders, third trimester (principal); O46.93 Antepartum hemorrhage, unspecified, third trimester; Z3A.28 28 weeks gestation of pregnancy
CPT/HCPCS: G0378